=== PATIENT | female | born 1955 | race Caucasian/White ===

== ENCOUNTER 2019-04-18 11:41 | Day surgery (SDC) | payer BC ==
[2019-04-18] MEDS ORDERED: PROPOFOL 10 MG/ML VIAL IV ONE (11:42)
[2019-04-18] MEDS ORDERED: LIDOCAINE 2% MDV (20MG/ML) 20ML VIAL IV ONE (11:42)
--- NOTE | 2019-04-19 09:11 | Operative Note ---
OPERATION: COLONOSCOPY to the cecum with cold snare polypectomy x1 and cold biopsy forceps polypectomy x1. INDICATION: History of adenomatous polyps. The patient's last examination was 5 years ago. She returns at this time for surveillance. ANESTHESIA: Intravenous sedation was administered by the department of anesthesiology and included Diprivan titrated to effect. PROCEDURE: Following informed consent from this alert individual including a discussion of the risks and benefits of the procedure and an opportunity for the patient to ask questions, the patient was in the left lateral decubitus position. A digital rectal examination was performed. No abnormalities were noted. Following this, the Olympus LUR970 video colonoscope was inserted into the rectum without resistance. The rectal mucosa had a normal appearance with normal folds and distensibility. The sigmoid colon was cannulated and demonstrated a few small diverticula. The colonoscope was advanced farther up through the bowel to the level of the cecum. The cecum was defined by noting the appendiceal orifice and ileocecal valve. The colon preparation was fair with some retained liquid and semi-solid stool noted. Washing and suctioning was employed vigorously throughout. From the base of the cecum, the colonoscope was slowly withdrawn. There were 2 polyps in the ascending colon. The smaller one measured 4 mm in size and was removed with 2 applications of cold biopsy forceps. The larger polyp was 6 mm in size and removed with cold snare polypectomy. The polyps were recovered. No other changes were noted throughout the bowel. Diverticulosis was again seen in the sigmoid colon. The preparation was suboptimal to fair after cleaning with water wash and suctioning. Retroflexion in the rectum was endoscopically unremarkable. The endoscope was straightened and removed. The patient tolerated the procedure well and was returned to the recovery area in stable condition. IMPRESSION: 1. A 4 mm ascending colon polyp removed with biopsy forceps. 2. A 6 mm ascending colon polyp removed with cold snare polypectomy. 3. Diverticulosis. 4. Fair colon preparation. RECOMMENDATIONS: Further recommendations will be forthcoming pending results of pathology obtained today. I would like to repeat examination with additional prep in 3 years' time or sooner if problems arise. Followup will be with Ezequiel Painter DO. As always, thank you for allowing me to participate in the care of your patient. AWILDA
== END 2019-04-18 14:40 | disposition home or self-care (01) ==
LOC: HOP 11:41
PROVIDERS: ATTEND Internal Medicine Gastroenterology
DX: Z12.11 Encounter for screening for malignant neoplasm of colon (principal); Z86.010 Personal history of colon polyps; K57.30 Diverticulosis of large intestine without perforation or abscess without bleeding; E78.00 Pure hypercholesterolemia, unspecified